=== PATIENT | female | born 1945 | race Caucasian/White ===

== ENCOUNTER 2017-10-22 09:38 | Emergency (ER) | payer MEDICARE ==
[~2017-10-22] VITALS: Ht 167.6 cm; Wt 108.9 kg
[2017-10-22 09:38] VITALS: BP_SYST 159
--- NOTE | 2017-10-22 09:48 | NUR ---
Placed in room 06. Placed on phototypesetting equipment monitor, blood pressure machine and pulse oximeter. To gown for exam. Side rails up. Report given to AARON Sheldon.
--- NOTE | 2017-10-22 09:57 | NUR ---
ER at bedside examining patient.
--- NOTE | 2017-10-22 10:00 | NUR ---
EKG performed at BS by nurse. Physician given copy of EKG for review.
[2017-10-22] MEDS ORDERED: ATEN-168 PO (10:01)
[2017-10-22] MEDS ORDERED: AMLO5TAB4 PO (10:01)
[2017-10-22] MEDS ORDERED: LOSA100T3 PO (10:01)
[2017-10-22] MEDS ORDERED: PRAV40TA PO (10:01)
[2017-10-22] MEDS ORDERED: PARO-41 PO (10:01)
[2017-10-22] MEDS ORDERED: OMEP20CA10 PO (10:01)
--- NOTE | 2017-10-22 10:02 | NUR ---
Medication reconciliation completed with information provided by patient. Any prior medication reconciliation on file was reviewed and corrected.
--- NOTE | 2017-10-22 10:05 | NUR ---
Patient presented in ER. CC of high blood pressure, been taking hypertensive medication for 3 days new prescribed but blood pressure not going down.pt alert,awake, oriented, anxious. while MD examining patient c/o left upper chest and radiate to left upper back,vital sign 189/93, pulse 60, resp 26, saturation 96% on room air. will monitor.
--- NOTE | 2017-10-22 10:20 | NUR ---
# 20 gauge angiocath placed to 20. Use of asceptic technique. Opsite placed over site. Blood return noted. Blood for lab drawn from site. Flushed with 10 cc of normal saline. No evidence of infiltration noted. Patient tolerated well.
[2017-10-22 10:28] LABS: BASOPHILS # (AUTO) 0.1 K/uL (0.0-0.2); BASOPHILS % (AUTO) 1.1 % (0.0-2.0); EOSINOPHILS # (AUTO) 0.2 K/uL (0.0-0.4); EOSINOPHILS % (AUTO) 2.6 % (0.0-4.0); HEMATOCRIT 46.2 % (36-48); HEMOGLOBIN 15.7 g/dL (12.0-16.0); LYMPHOCYTES # (AUTO) 1.2 K/uL (1.0-5.5); LYMPHOCYTES % (AUTO) 16.3 % (20.5-51.5); MEAN CORPUSCULAR HEMOGLOBIN 31 pg (27-31); MEAN CORPUSCULAR HGB CONC 34 % (32-36); MEAN CORPUSCULAR VOLUME 91 fL (79.0-98.0); MONOCYTES # (AUTO) 0.3 K/uL (0.0-1.0); MONOCYTES % (AUTO) 4.2 % (1.7-9.3); NEUTROPHILS # (AUTO) 5.6 K/uL (1.8-7.7); NEUTROPHILS % (AUTO) 75.8 % (40.0-70.0); PLATELET COUNT (AUTO) 191 K/uL (130-430); RED CELL DISTRIBUTION WIDTH 13.1 % (9.0-15.0); WHITE BLOOD COUNT (AUTO) 7.4 K/uL (4.8-10.8)
[2017-10-22 10:43] LABS: ANION GAP 9 (5-15); CALCIUM 9.4 mg/dL (8.4-11.0); CHLORIDE 105 mmol/L (98-107); CREATININE 0.77 mg/dL (0.55-1.30); GLUCOSE 121 mg/dL (70-99); POTASSIUM 4.1 mmol/L (3.5-5.1); SODIUM SERUM 139 mmol/L (136-145); UREA NITROGEN, BLOOD 9 mg/dL (8-21)
[2017-10-22 10:47] LABS: INR 0.9 (0.8-1.2); PROTHROMBIN TIME 9.6 SECS (9.5-12.5)
[2017-10-22 10:50] LABS: ALANINE AMINOTRANSFERASE 17 U/L (12-78); ALBUMIN 3.6 g/dL (3.4-4.8); ASPARTATE AMINOTRANSFERASE 13 U/L (10-37); TOTAL BILIRUBIN 0.6 mg/dL (0.0-1.0)
[2017-10-22 11:28] VITALS: BP_SYST 154
== END 2017-10-22 11:28 | disposition home or self-care (01) ==
LOC: SED 09:38
DX: I10 Essential (primary) hypertension (principal); Z79.899 Other long term (current) drug therapy
CPT/HCPCS: 36415; 71045; 80053; 82550-TC; 84484; 85025; 85610-TC; 85730-TC; 93005; 99285

== ENCOUNTER 2020-02-10 08:16 | Emergency (ER) | payer MEDICARE ==
[~2020-02-10] VITALS: Ht 165.1 cm; Wt 100.7 kg
[~2020-02-10 08:16] MED LIST: AMLO5TAB4 PO; ATEN-168 PO; LOSA100T3 PO; OMEP20CA15 PO; PARO-41 PO; PRAV40TA PO
--- NOTE | 2020-02-10 08:16 | NUR ---
Patient to ER bed 6 to gown for evaluation. Side rails up.
--- NOTE | 2020-02-10 08:20 | NUR ---
Pt bib son from home with c/o dizziness since this morning. Reports h/o HTN and that she took her blood pressure medication this morning. Denies n/v or any pain at this time. V/S stable, pt is afebrile. Currently sitting at bedside, will continue to monitor.
[2020-02-10 08:29] VITALS: BP_SYST 182
--- NOTE | 2020-02-10 08:44 | NUR ---
ER Dr. Cooney at bedside examining patient.
--- NOTE | 2020-02-10 08:55 | NUR ---
Lab at bedside for blood draw.
[2020-02-10 08:57] LABS: BILIRUBIN,URINE NEGATIVE (NEGATIVE); BLOOD, URINE NEGATIVE (NEGATIVE); CLARITY/URINE CLEAR (CLEAR); GLUCOSE,URINE NEGATIVE (NEGATIVE); KETONES,URINE NEGATIVE (NEGATIVE); LEUKOCYTE ESTERASE ,URINE NEGATIVE (NEGATIVE); NITRITE, URINE NEGATIVE (NEGATIVE); PROTEIN URINE NEGATIVE (NEGATIVE); UROBILINOGEN,URINE 0.2 (0.2-1.0)
[2020-02-10 08:59] LABS: COLOR,URINE STRAW (YELLOW)
[2020-02-10] MEDS ORDERED: MECLIZINE HCL 25 MG TABLET (ANITVERT) PO ONE (09:00)
--- NOTE | 2020-02-10 09:11 | NUR ---
Patient transported to radiology via wheelchair, accompanied by staff.
[2020-02-10 09:16] LABS: BASOPHILS # (AUTO) 0.1 K/uL (0.0-0.2); BASOPHILS % (AUTO) 0.7 % (0.0-2.0); EOSINOPHILS # (AUTO) 0.2 K/uL (0.0-0.4); EOSINOPHILS % (AUTO) 2.2 % (0.0-4.0); HEMATOCRIT 46.5 % (36-48); HEMOGLOBIN 15.6 g/dL (12.0-16.0); LYMPHOCYTES # (AUTO) 1.2 K/uL (1.0-5.5); LYMPHOCYTES % (AUTO) 12.5 % (20.5-51.5); MEAN CORPUSCULAR HEMOGLOBIN 31 pg (27-31); MEAN CORPUSCULAR HGB CONC 34 % (32-36); MEAN CORPUSCULAR VOLUME 93 fL (79.0-98.0); MONOCYTES # (AUTO) 0.4 K/uL (0.0-1.0); MONOCYTES % (AUTO) 4.4 % (1.7-9.3); NEUTROPHILS # (AUTO) 7.4 K/uL (1.8-7.7); NEUTROPHILS % (AUTO) 80.2 % (40.0-70.0); PLATELET COUNT (AUTO) 213 K/uL (130-430); RED BLOOD CELL COUNT(AUTO) 5.01 MIL/uL (4.2-6.2); RED CELL DISTRIBUTION WIDTH 14.1 % (9.0-15.0); WHITE BLOOD COUNT (AUTO) 9.3 K/uL (4.8-10.8)
[2020-02-10 09:20] LABS: ANION GAP 5 (5-15); CALCIUM 9.2 mg/dL (8.4-11.0); CHLORIDE 106 mmol/L (98-107); CREATININE 0.67 mg/dL (0.55-1.30); GLUCOSE 108 mg/dL (70-99); POTASSIUM 3.9 mmol/L (3.5-5.1); SODIUM SERUM 140 mmol/L (136-145); UREA NITROGEN, BLOOD 13 mg/dL (8-21)
[2020-02-10 09:25] LABS: ALANINE AMINOTRANSFERASE 40 U/L (12-78); ALBUMIN 3.8 g/dL (3.4-4.8); ASPARTATE AMINOTRANSFERASE 25 U/L (10-37); TOTAL BILIRUBIN 0.6 mg/dL (0.0-1.0)
[2020-02-10 09:28] LABS: INR 0.9 (0.8-1.2); PROTHROMBIN TIME 9.5 SECS (9.5-12.5)
--- NOTE | 2020-02-10 11:00 | NUR ---
US at bedside
[2020-02-10 11:42] VITALS: BP_SYST 141
--- NOTE | 2020-02-10 11:43 | NUR ---
Patient given written and verbal discharge instructions and verbalizes understanding. ER MD discussed with patient the results and treatment provided. Patient in stable condition. ID arm band removed. Rx of MECLIZINE given. Patient educated on pain management and to follow up with PMD. Pain Scale 0/10 Opportunity for questions provided and answered. Medication side effect fact sheet provided.
== END 2020-02-10 11:41 | disposition home or self-care (01) ==
LOC: SED 08:16
DX: H81.10 Benign paroxysmal vertigo, unspecified ear (principal); I10 Essential (primary) hypertension; Z86.711 Personal history of pulmonary embolism; Z86.718 Personal history of other venous thrombosis and embolism; Z79.899 Other long term (current) drug therapy
CPT/HCPCS: 36415; 70450-TC; 76376; 80053; 81003; 85025; 85610-TC; 85730-TC; 93971; 99285; J8597

== ENCOUNTER 2020-02-13 21:31 | Emergency (ER) | payer MEDICARE, SELFPAY ==
[~2020-02-13] VITALS: Ht 165.1 cm; Wt 99.8 kg
[2020-02-13 21:35] VITALS: BP_SYST 153
--- NOTE | 2020-02-14 01:58 | NUR ---
Placed in room 4 . Placed on nuclear monitoring technician, blood pressure machine and pulse oximeter. To gown for exam. Side rails up.
--- NOTE | 2020-02-14 01:59 | NUR ---
ER at bedside examining patient.
--- NOTE | 2020-02-14 02:00 | NUR ---
Pt presents to ER for intermittent dizzness and abdominal discomfort since thanks. Pt was recently seen at ER for similar symptoms. Pt was given mezcline w/ no relief. Pt denies n/v/d, fever.
[2020-02-14] MEDS ORDERED: LIDOCAINE VISCOUS 2%, 15 ML UDC MM ONE (02:45)
[2020-02-14] MEDS ORDERED: MAG-AL HYDROX/SIMETH 30 ML UDC PO ONE (02:45)
[2020-02-14 03:10] LABS: BASOPHILS # (AUTO) 0.1 K/uL (0.0-0.2); BASOPHILS % (AUTO) 0.8 % (0.0-2.0); EOSINOPHILS # (AUTO) 0.2 K/uL (0.0-0.4); EOSINOPHILS % (AUTO) 2.9 % (0.0-4.0); HEMATOCRIT 43.9 % (36-48); HEMOGLOBIN 14.6 g/dL (12.0-16.0); LYMPHOCYTES # (AUTO) 1.9 K/uL (1.0-5.5); LYMPHOCYTES % (AUTO) 26.1 % (20.5-51.5); MEAN CORPUSCULAR HEMOGLOBIN 31 pg (27-31); MEAN CORPUSCULAR HGB CONC 33 % (32-36); MEAN CORPUSCULAR VOLUME 93 fL (79.0-98.0); MONOCYTES # (AUTO) 0.5 K/uL (0.0-1.0); MONOCYTES % (AUTO) 6.7 % (1.7-9.3); NEUTROPHILS # (AUTO) 4.7 K/uL (1.8-7.7); NEUTROPHILS % (AUTO) 63.5 % (40.0-70.0); PLATELET COUNT (AUTO) 203 K/uL (130-430); RED BLOOD CELL COUNT(AUTO) 4.73 MIL/uL (4.2-6.2); RED CELL DISTRIBUTION WIDTH 14.2 % (9.0-15.0); WHITE BLOOD COUNT (AUTO) 7.4 K/uL (4.8-10.8)
[2020-02-14 03:25] LABS: ANION GAP 6 (5-15); CALCIUM 8.9 mg/dL (8.4-11.0); CHLORIDE 107 mmol/L (98-107); CREATININE 0.69 mg/dL (0.55-1.30); GLUCOSE 105 mg/dL (70-99); POTASSIUM 3.8 mmol/L (3.5-5.1); SODIUM SERUM 143 mmol/L (136-145); UREA NITROGEN, BLOOD 13 mg/dL (8-21)
[2020-02-14 03:31] LABS: ALANINE AMINOTRANSFERASE 29 U/L (12-78); ALBUMIN 3.6 g/dL (3.4-4.8); ASPARTATE AMINOTRANSFERASE 21 U/L (10-37); TOTAL BILIRUBIN 0.5 mg/dL (0.0-1.0)
[2020-02-14] MEDS ORDERED: DICYCLOMINE HCL 10 MG/5 ML SOLUTION ONE (03:39)
[2020-02-14] MEDS: DICYCLOMINE HCL 10 MG CAPSULE PO ONE ×2 (03:40→03:49)
--- NOTE | 2020-02-14 03:55 | NUR ---
EKG performed at by Sari WALKER. Physician given copy of EKG for review.
[2020-02-14] MEDS ORDERED: DICYCLOMINE HCL 10 MG/5 ML SOLUTION PO ONE (04:00)
--- NOTE | 2020-02-14 04:45 | NUR ---
COVID SWAB SENT TO LAB
--- NOTE | 2020-02-14 05:15 | NUR ---
Pt able to ambulate to bathroom. No complaints at this time.
--- NOTE | 2020-02-14 05:50 | NUR ---
Pt resting no complaints at this time.
--- NOTE | 2020-02-14 06:17 | NUR ---
Pt given a cup of coffee. No complaints at this time.
--- NOTE | 2020-02-14 07:10 | NUR ---
Assumed care of patient, report received from AARON Guo. Currently resting in bed, will continue to monitor.
--- NOTE | 2020-02-14 10:07 | NUR ---
TRANSFER INFO [facility] ED ACCEPTING: PETR BARNES REPORT: [phone] ALS ETA 1045 ([facility]) SPOKE TO AARON CHOWDHURY
--- NOTE | 2020-02-14 10:29 | NUR ---
# 20 gauge angiocath placed to LAC. Use of asceptic technique. Opsite placed over site. Blood return noted. Flushed with 10 cc of normal saline. No evidence of infiltration noted. Patient tolerated well.
[2020-02-14 10:35] VITALS: BP_SYST 146
--- NOTE | 2020-02-14 10:37 | NUR ---
Patient to be transferred to [facility] ER. Is being transferred due to higher level of care. Receiving facility has accepting physician and available space. ER physician has signed transfer form. Patient or responsible republican has agreed to transfer and signed form. Patient belongings inventoried and will be sent with patient. Copy of nursing notes, lab reports, EKG, Physicians Orders and X-rays to be sent with patient. Report called to AARON Johnson at receiving facility. Receiving physician is Dr. Anderson. ETA is 1045.
== END 2020-02-14 10:37 | disposition short-term general hospital (02) ==
LOC: SED 21:31
DX: R55 Syncope and collapse (principal); I10 Essential (primary) hypertension; Z86.711 Personal history of pulmonary embolism; Z86.718 Personal history of other venous thrombosis and embolism; Z79.899 Other long term (current) drug therapy; Z20.828 Contact with and (suspected) exposure to other viral communicable diseases
CPT/HCPCS: 36415; 80053; 83880; 84484; 85025; 87426; 93005; 99285; J2001